=== PATIENT | female | born 2000 | race Caucasian/White ===

== ENCOUNTER 2021-11-05 22:46 | Emergency (ER) | payer OTHER ==
[2021-11-06] MEDS ORDERED: ACETAMINOPHEN 500 MG TAB ONE (02:31)
[2021-11-06 02:56] LABS: Urine Blood 1+ (Negative); Urine Glucose Negative (Negative); Urine Protein Negative (Negative); Urine Specific Gravity >=1.030 (1.005-1.030)
[2021-11-06 03:49] LABS: Absolute Lymphocytes (CBC) 2.6 K/uL (0.7-4.9); Hematocrit 35.3 % (36.0-45.0); Lymphocytes % 36.5 % (15.3-44.8); MPV 8.2 fL (7.6-11.3); RBC Red Blood Cell Count 4.54 M/uL (3.86-4.86)
[2021-11-06 03:53] LABS: Protime INR 1.04
[2021-11-06 03:58] LABS: Albumin 4.1 g/dL (3.4-5.0); Bilirubin Direct 0.2 mg/dL (0-0.2); Bilirubin Total 0.4 mg/dL (0.2-1.0); Potassium 3.5 mmol/L (3.5-5.1)
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
[2021-11-06 06:51] VITALS: TEMP 99.5
[2021-11-06 06:58] VITALS: BP 115/71; O2SAT 99
--- NOTE | 2021-11-06 13:54 | RAD REPORT ---
EXAM DESCRIPTION: CT - Head C Spine Cap W Con - 11/06/2021 7:07 am CLINICAL HISTORY: Trauma COMPARISON: None. CT head: TECHNIQUE: Computerized tomography of the head was performed without contrast material. This exam wa s performed according to our department optimization program which includes automated exposure contro l, adjustment of the mA and/or kV according to patient size, and/or use of iterative reconstruction t echnique. FINDINGS: No CT evidence of intracranial mass, hemorrhage, acute territorial infarction, or hydrocep halus. Intracranial arteries are symmetric in density. Globes and orbits demonstrate no acute abnorma lity. Calvarium is intact. The visualized paranasal sinuses and mastoids are aerated. IMPRESSION: No acute intracranial abnormality. CT cervical spine: TECHNIQUE: Computerized tomography of the cervical spine was performed from the skull base to T1 wit hout contrast material. This exam was performed according to our department optimization program whic h includes automated exposure control, adjustment of the mA and/or kV according to patient size, and/ or use of iterative reconstruction technique. FINDINGS: The vertebral body heights and alignment are maintained. No acute fracture or subluxation is identified. No osseous degenerative changes are seen. IMPRESSION: No acute abnormality of the cervical spine is identified . EXAM DESCRIPTION: CT chest, abdomen, pelvis with IV contrast TECHNIQUE: Computerized axial tomography of the chest, abdomen, and pelvis after the IV injection of iodinated nonionic contrast was performed. Automated exposure control, adjustment of mA and/or kV ac cording to patient size, or iterative reconstruction dose optimization techniques were utilized. FINDINGS: Heart and pericardium: No pericardial effusion is identified. There is trace amount of per icardial fluid. Thoracic aorta: No aneurysm or dissection. Pulmonary vasculature: Normal. Mediastinum: Anterior mediastinal soft tissue attenuation is favored to be related to thymic tissue . No evidence of hematoma surrounding the aorta. No adenopathy. Lungs: Normal. Pleural space: No effusion, thickening, or pneumothorax. Liver: Normal size and attenuation. Spleen: Normal size and attenuation. Gallbladder and biliary system: Gallbladder is present. Pancreas: Normal. Adrenals: Normal. Kidneys: Normal. GI tract: There is moderate volume of stool in colon. No bowel obstruction or inflammation. Appendi x is normal in CT appearance Lymph nodes and mesentery: Normal. Vasculature: Normal.. Bladder: Unremarkable CT appearance. Reproductive organs: Uterus is present. Peritoneum: No free fluid or free air. Musculoskeletal structures: There is mild thoracic dextroscoliosis. No acute fracture is identified. Other: None. IMPRESSION: No acute abnormality is seen of the chest, abdomen, pelvis. Electronically signed by: Amee Yeung MD 11/06/2021 6:21 AM CDT Due to temporary technical issues with the PACS/Fluency reporting system, reports are being signed by the in house radiologist without review as a courtesy to ensure prompt reporting. The interpreting r adiologist is fully responsible for the content of the report.
== END 2021-11-06 06:39 | disposition home or self-care (01) ==
LOC: ER 22:46
DX: S00.93XA Contusion of unspecified part of head, initial encounter (principal); S20.219A Contusion of unspecified front wall of thorax, initial encounter; V43.62XA Car passenger injured in collision with other type car in traffic accident, initial encounter; Y93.89 Activity, other specified; Y92.488 Other paved roadways as the place of occurrence of the external cause; F41.8 Other specified anxiety disorders
CPT/HCPCS: 85025; 80048; 36415; 86900; 86850; 85610; 86901; 80076; 85730; 81003; 70450; 72125; 71260; 74177; 99284; Q9967